=== PATIENT | female | born 1970 | race Caucasian/White ===

== ENCOUNTER → 2017-10-02 | Outpatient (CLI) | payer OTHER ==
[~2017-10-02] MED LIST: ALPR0.5T PO; CETI10TA22 PO; PROG100C15 PO
--- NOTE | 2017-10-02 11:35 | RAD ---
INDICATION: COUGH COMPARISON: None. FINDINGS: 2 views of chest obtained. No focal airspace consolidation. Mediastinal contour is unremarkable. No gross osseous destructive lesion. IMPRESSION: No focal airspace consolidation or edema.
== END | disposition home or self-care (01) ==
LOC: PMG 11:10
PROVIDERS: ATTEND Physician Assistant Medical
DX: R05 Cough (principal)
CPT/HCPCS: 71046

== ENCOUNTER → 2020-05-11 | Outpatient (CLI) | payer OTHER ==
[~2020-05-11] MED LIST changes: -CETI10TA22 PO; +CETI10TA24 PO
--- NOTE | 2020-05-11 14:29 | RAD ---
PROCEDURE: SHOULDER BILAT 2+V CLINICAL INDICATION / HISTORY: Reason: BILATERAL SHOULDER PAIN, NO INJURY / Spl. Instructions: / History: . TECHNIQUE: AP internal and external rotation views with a Y- view were obtained of the left and right shoulders. COMPARISON: PA and lateral views of the chest dated 10/02/2017. FINDINGS: No fracture, dislocation or bone destruction is identified. There are no degenerative changes at the right AC joint. No calcifications are seen in relation to the rotator cuff insertion. IMPRESSION: Normal x-ray series of the left and right shoulders. Electronically signed by: Liudmila Colon MD (05/11/2020 2:26 PM) [id number]
== END | disposition home or self-care (01) ==
LOC: PMG 10:30
PROVIDERS: ATTEND Physician Assistant Medical
DX: M25.511 Pain in right shoulder (principal); M25.512 Pain in left shoulder
CPT/HCPCS: 73030